=== PATIENT | male | born 1990 | race Caucasian/White ===

== ENCOUNTER 2018-02-13 19:20 | Emergency (ER) | payer OTHER ==
[~2018-02-13] VITALS: Ht 160 cm; Wt 56.7 kg
[2018-02-14] MEDS ORDERED: INTESTINEX680 M1 PO (03:05)
[2018-02-14] MEDS ORDERED: LEVSIN/SL0.125 MG SL (03:05)
== END 2018-02-14 03:03 | disposition home or self-care (01) ==
LOC: ER 19:20
DX: K52.9 Noninfective gastroenteritis and colitis, unspecified (principal)